=== PATIENT | female | born 1990 ===

== ENCOUNTER 2020-01-15 01:17 | Emergency (ER) | payer BC ==
--- NOTE | 2020-01-15 01:25 | EDM.PDOC ---
ED HPI GENERAL MEDICAL PROBLEM - General Chief Complaint: Drug or Alcohol Abuse Stated Complaint: INTOXICATION Time Seen by Provider: 01/15/20 01:22 - History of Present Illness INITIAL COMMENTS - FREE TEXT/NARRATIVE: History of present illness: [Patient presents via EMS with alcohol intoxication she has no other complaints except that she drinks so much that she is having trouble getting up apparently was worried about her so he called 911. She presents to the ED alert and oriented she is arousable she has vomited a couple times has normal vital signs no medical problems nothing makes it better or worse] Review of systems: As per history of present illness and below otherwise all systems reviewed and negative. Past medical history: As per history of present illness and as reviewed below otherwise noncontributory. Surgical history: As per history of present illness and as reviewed below otherwise noncontributory. Social history: No reported history of drug or alcohol abuse. Family history: As per history of present illness and as reviewed below otherwise noncontributory. Physical exam: HEENT: Atraumatic, normocephalic, pupils reactive, negative for conjunctival pallor or scleral icterus, mucous membranes moist, throat clear, neck supple, nontender, trachea midline. Lungs: Clear to auscultation, breath sounds equal bilaterally, chest nontender. Heart: S1S2, regular, negative for clicks, rubs, or JVD. Abdomen: Soft, nondistended, nontender. Negative for masses or hepatosplenomegaly. Negative for costovertebral tenderness. Pelvis: Stable nontender. Genitourinary: Deferred. Rectal: Deferred. Extremities: Atraumatic, negative for cords or calf pain. Neurovascular unremarkable. Neuro: Awake, alert, oriented. Cranial nerves II through XII unremarkable. Cerebellum unremarkable. Motor and sensory unremarkable throughout. Exam nonfocal. Intoxicated Diagnostics: [] Therapeutics: [] Impression: Alcohol intoxication [] Plan: Will observe until she decides she wants to go home. Able to ambulate on her own [] Definitive disposition and diagnosis as appropriate pending reevaluation and review of above. - Related Data Allergies Allergy/AdvReac Type Severity Reaction Status Date / Time animal dander Allergy Sneezing Verified 01/15/20 01:29 antibioitic Allergy Other Uncoded 01/15/20 01:29 Home Meds: Home Meds . [No Known Home Meds] 01/15/20 [History] ED ROS GENERAL - Review of Systems Review Of Systems: See Below ED EXAM, GENERAL - Physical Exam Exam: See Below Course - Vital Signs Last Recorded V/S: Last Vital Signs Temp 35.9 C L 01/15/20 01:24 Pulse 89 01/15/20 05:00 Resp 16 01/15/20 05:00 BP 92/47 L 01/15/20 05:00 Pulse Ox 95 01/15/20 05:00 - Orders/Labs/Meds Orders: Active Orders 24 hr Category Date Time Status Overnight Pulse Oximetry [RC] Click to Edit Care 01/15/20 01:22 Active Pulse Oximetry Continuous Monitoring [OM.PC] Routine Oth 01/15/20 01:22 Ordered Departure - Departure Time of Disposition: 06:21 Disposition: Home, Self-Care 01 Condition: Good Clinical Impression: Alcohol intoxication Qualifiers: Complication of substance-induced condition: uncomplicated Qualified Code(s): F10.920 - Alcohol use, unspecified with intoxication, uncomplicated - Discharge Information *PRESCRIPTION DRUG MONITORING PROGRAM REVIEWED*: Not Applicable *COPY OF PRESCRIPTION DRUG MONITORING REPORT IN PATIENT RADHA: Not Applicable Instructions: Alcohol Intoxication, [id number] Referrals: PCP,None [Primary Care Provider] - Forms: ED Department Discharge Additional Instructions: The following information is given to patients seen in the emergency department who are being discharged to home. This information is to outline your options for follow-up care. We provide all patients seen in our emergency department with a follow-up referral. The need for follow-up, as well as the timing and circumstances, are variable depending upon the specifics of your emergency department visit. If you don't have a primary care physician on staff, we will provide you with a referral. We always advise you to contact your personal physician following an emergency department visit to inform them of the circumstance of the visit and for follow-up with them and/or the need for any referrals to a consulting specialist. The emergency department will also refer you to a specialist when appropriate. This referral assures that you have the opportunity for follow-up care with a specialist. All of these measure are taken in an effort to provide you with optimal care, which includes your follow-up. Under all circumstances we always encourage you to contact your private physician who remains a resource for coordinating your care. When calling for follow-up care, please make the office aware that this follow-up is from your recent emergency room visit. If for any reason you are refused follow-up, please contact the [facility] Emergency Department at and asked to speak to the emergency department charge nurse. [facility] [address], [place] [address] [facility] [address] [place] [id number] Sepsis Event Note - Focused Exam Vital Signs: Vital Signs Temp Pulse Resp BP Pulse Ox 01/15/20 05:00 89 16 92/47 L 95 01/15/20 04:00 84 16 87/40 L 94 L 01/15/20 03:00 84 18 98/56 L 95 01/15/20 02:10 81 16 97/53 L 95 01/15/20 01:24 35.9 C L 92 16 106/56 L 97 Date Exam was Performed: 01/15/20 Time Exam was Performed: 06:21 - My Orders Last 24 Hours: My Active Orders 01/15/20 01:22 Overnight Pulse Oximetry [RC] Click to Edit Pulse Oximetry Continuous Monitoring [OM.PC] Routine - Assessment/Plan Last 24 Hours: My Active Orders 01/15/20 01:22 Overnight Pulse Oximetry [RC] Click to Edit Pulse Oximetry Continuous Monitoring [OM.PC] Routine
== END 2020-01-15 07:36 | disposition home or self-care (01) ==
LOC: MW.ED 01:17
DX: F10.120 Alcohol abuse with intoxication, uncomplicated (principal); Z88.1 Allergy status to other antibiotic agents; Z91.048 Other nonmedicinal substance allergy status
CPT/HCPCS: 99282; 99284

== ENCOUNTER 2024-07-20 10:53 | Emergency (ER) | payer SELFPAY | END 2024-07-20 12:56 | disposition home or self-care (01) | LOC: MW.ED 10:53 | DX: J39.9 Disease of upper respiratory tract, unspecified (principal); B97.89 Other viral agents as the cause of diseases classified elsewhere; F17.210 Nicotine dependence, cigarettes, uncomplicated; Z88.1 Allergy status to other antibiotic agents; Z88.2 Allergy status to sulfonamides; Z91.048 Other nonmedicinal substance allergy status; Z79.51 Long term (current) use of inhaled steroids; Z79.899 Other long term (current) drug therapy; Z75.8 Other problems related to medical facilities and other health care | CPT/HCPCS: 71046; 71046-26; 81025; 87428-QW; 99285 ==